=== PATIENT | female | born 1975 | race Caucasian/White ===

== ENCOUNTER 2022-07-20 07:25 | Day surgery (SDC) | payer MEDICARE, MEDICAID ==
[~2022-07-20 07:25] MED LIST: Lactated Ringers 1,000 ML IV SCH; Lidocaine 1%/Sod Bicarbonate in NS 8.4% 1 ML Syringe IDERM PRN; Midazolam 1 MG/ML 2 ML SDV ONE; Propofol 200 MG/20 ML SDV ONE; Sodium Chloride 0.9% 10 ML Syringe FLUSH PRN; Sodium Chloride 0.9% 10 ML Syringe FLUSH SCH; fentaNYL 100 MCG/2 ML SDV ONE
[2022-07-20] MEDS ORDERED: Lidocaine 1% 10 ML MDV ONE (07:50)
[2022-07-20] MEDS ORDERED: Bupivacaine 0.5% 10 ML SDV ONE ×3 (07:51→09:32)
[2022-07-20] MEDS ORDERED: Albuterol 0.083% 2.5 MG/3 ML Neb Soln NEB ONE (08:06)
[2022-07-20] MEDS ORDERED: Lidocaine 1% 4 ML ONE (09:09)
[2022-07-20] MEDS ORDERED: ceFAZolin 2 GM Vial ONE (09:11)
[2022-07-20] MEDS ORDERED: Midazolam 1 MG/ML 2 ML SDV ONE (09:22)
[2022-07-20] MEDS ORDERED: Ketamine 500 mg/10 ML MDV ONE (09:34)
[2022-07-20] MEDS ORDERED: Propofol 200 MG/20 ML SDV ONE (09:47)
[2022-07-20] MEDS ORDERED: Ketorolac 30 MG/ML SDV IVPUSH SCH (11:00)
== END 2022-07-20 13:00 | disposition home or self-care (01) ==
LOC: JD.SDS 07:25
PROVIDERS: ATTEND Podiatrist Foot & Ankle Surgery
DX: M20.12 Hallux valgus (acquired), left foot (principal); M79.672 Pain in left foot; I10 Essential (primary) hypertension; F41.9 Anxiety disorder, unspecified; E66.9 Obesity, unspecified; F32.A Depression, unspecified; E78.5 Hyperlipidemia, unspecified; F41.0 Panic disorder [episodic paroxysmal anxiety]; F20.0 Paranoid schizophrenia; G47.30 Sleep apnea, unspecified
CPT/HCPCS: 28292; 28315; 81025; C1713; C1769; J0690; J1885; J2250; J2704; J3010; J3490; J7120; 01480

== ENCOUNTER 2023-01-25 15:40 | Emergency (ER) | payer MEDICARE, MEDICAID ==
[2023-01-25] MEDS ORDERED: Sodium Chloride 0.9% 10 ML Syringe FLUSH PRN (16:16)
[2023-01-25 16:26] LABS: BASOPHILS ABSOLUTE AUTO 0.03 K/mm3 (0.01-0.08); BASOPHILS PERCENT AUTO 0.2 % (0.1-1.2); EOSINOPHILS ABSOLUTE AUTO 0.08 K/mm3 (0.04-0.36); EOSINOPHILS PERCENT AUTO 0.6 (0.7-5.8); HEMATOCRIT 39.1 % (34.1-44.9); HEMOGLOBIN 12.3 gm/dl (11.2-15.7); IMMATURE GRAN ABSOLUTE AUTO 0.07 K/mm3 (0.00-0.10); IMMATURE GRAN PERCENT AUTO 0.5 % (<=1.0); LYMPHOCYTES PERCENT AUTO 13.4 % (19.3-51.7); MEAN CORPUSCULAR HEMOGLOBIN 29.4 pg (25.6-32.2); MEAN CORPUSCULAR HGB CONC 31.5 g/dl (32.2-35.5); MEAN CORPUSCULAR VOLUME 93.5 fl (79.4-94.8); MONOCYTES ABSOLUTE AUTO 1.35 K/mm3 (0.24-0.36); MONOCYTES PERCENT AUTO 10.1 % (4.7-12.5); NEUTROPHILS ABSOLUTE AUTO 10.08 K/mm3 (1.56-6.13); NEUTROPHILS PERCENT AUTO 75.2 % (34.0-71.1); PLATELET COUNT,PLT 323 K/mm3 (182-369); RED BLOOD CELL COUNT 4.18 M/mm3 (3.98-5.22); WHITE BLOOD CELL COUNT,WBC 13.41 K/mm3 (3.98-10.04)
[2023-01-25 17:07] LABS: A/G RATIO 0.5 (1-2); ALANINE AMINOTRANSFERASE,ALT 16 U/L (14-59); ALBUMIN 2.5 g/dl (3.4-5.0); ALKALINE PHOSPHATASE 67 U/L (46-116); ANION GAP 13.9 (5-15); ASPARTATE AMNIOTRANSFERASE,AST 28 U/L (15-37); BILIRUBIN TOTAL 0.6 mg/dL (0.2-1.0); BLOOD UREA NITROGEN,BUN 9 mg/dL (7-18); CALCIUM 8.9 mg/dL (8.5-10.1); CARBON DIOXIDE,CO2 24 mEq/L (21-32); CHLORIDE,CL 105 mEq/L (98-107); CREATININE 0.9 mg/dL (0.55-1.02); ESTIMATED GFR 80 mL/min (>60); GLUCOSE RANDOM 95 mg/dL (70-99); POTASSIUM,K 3.9 mEq/L (3.5-5.1); PROTEIN TOTAL,TP 7.3 g/dl (6.4-8.2); SODIUM,NA 139 mEq/L (136-145)
[2023-01-25 17:21] LABS: C-REACTIVE PROTEIN 17.8 mg/dL (<1.0)
[2023-02-02 13:42] LABS: CLOZAPINE, SERUM 1179 ng/mL (350-600); NORCLOZAPINE, SERUM 374 ng/mL (Not Estab.); TOTAL(CLOZNORCLOZ) 1553 ng/mL
== END 2023-01-25 19:21 | disposition home or self-care (01) ==
LOC: JD.ED 15:40
DX: J18.9 Pneumonia, unspecified organism (principal); T42.4X5A Adverse effect of benzodiazepines, initial encounter; I10 Essential (primary) hypertension; E66.9 Obesity, unspecified; Z88.8 Allergy status to other drugs, medicaments and biological substances; Z88.2 Allergy status to sulfonamides; Z79.899 Other long term (current) drug therapy
CPT/HCPCS: 36415; 71045; 80053; 80159; 84703; 85025; 86140; 99285; J3490; 99284

== ENCOUNTER 2023-01-28 11:54 | Emergency (ER) | payer MEDICARE, MEDICAID ==
[2023-01-28] MEDS ORDERED: Prazosin 1 MG Cap PO ONE (12:36)
[2023-01-28] MEDS ORDERED: Loratadine 10 MG Tab PO ONE (12:37)
[2023-01-28] MEDS ORDERED: Losartan 50 MG Tab PO ONE (12:37)
[2023-01-28] MEDS ORDERED: Gabapentin 300 MG Cap PO ONE (12:38)
[2023-01-28] MEDS ORDERED: busPIRone 5 MG Tab PO ONE (12:38)
[2023-01-28 12:42] LABS: BASOPHILS ABSOLUTE AUTO 0.03 K/mm3 (0.01-0.08); BASOPHILS PERCENT AUTO 0.3 % (0.1-1.2); EOSINOPHILS PERCENT AUTO 0.9 (0.7-5.8); HEMATOCRIT 34.9 % (34.1-44.9); IMMATURE GRAN ABSOLUTE AUTO 0.09 K/mm3 (0.00-0.10); IMMATURE GRAN PERCENT AUTO 0.8 % (<=1.0); LYMPHOCYTES ABSOLUTE AUTO 1.42 K/mm3 (1.18-3.74); LYMPHOCYTES PERCENT AUTO 12.8 % (19.3-51.7); MEAN CORPUSCULAR HEMOGLOBIN 29.3 pg (25.6-32.2); MEAN CORPUSCULAR HGB CONC 31.5 g/dl (32.2-35.5); MEAN CORPUSCULAR VOLUME 93.1 fl (79.4-94.8); MEAN PLATELET VOLUME 8.6 fl (9.4-12.3); MONOCYTES ABSOLUTE AUTO 1.31 K/mm3 (0.24-0.36); MONOCYTES PERCENT AUTO 11.8 % (4.7-12.5); NEUTROPHILS ABSOLUTE AUTO 8.12 K/mm3 (1.56-6.13); NEUTROPHILS PERCENT AUTO 73.4 % (34.0-71.1); PLATELET COUNT,PLT 293 K/mm3 (182-369); RED BLOOD CELL COUNT 3.75 M/mm3 (3.98-5.22); WHITE BLOOD CELL COUNT,WBC 11.07 K/mm3 (3.98-10.04)
[2023-01-28] MEDS ORDERED: Sertraline 50 MG Tab PO SCH (12:45)
[2023-01-28 12:56] LABS: INR 1.48; PROTHROMBIN TIME 15.4 SECONDS (9.7-12.0)
[2023-01-28 12:57] LABS: PTT,PARTIAL THROMBOPLSTIN TIME 34.5 SECONDS (21.7-31.4)
[2023-01-28 13:01] LABS: A/G RATIO 0.6 (1-2); ALANINE AMINOTRANSFERASE,ALT 20 U/L (14-59); ALBUMIN 2.3 g/dl (3.4-5.0); ALKALINE PHOSPHATASE 57 U/L (46-116); ANION GAP 15.2 (5-15); ASPARTATE AMNIOTRANSFERASE,AST 45 U/L (15-37); BILIRUBIN TOTAL 0.6 mg/dL (0.2-1.0); BLOOD UREA NITROGEN,BUN 12 mg/dL (7-18); CALCIUM 8.4 mg/dL (8.5-10.1); CARBON DIOXIDE,CO2 24 mEq/L (21-32); CHLORIDE,CL 104 mEq/L (98-107); CREATININE 0.8 mg/dL (0.55-1.02); ESTIMATED GFR 93 mL/min (>60); GLUCOSE RANDOM 98 mg/dL (70-99); POTASSIUM,K 3.2 mEq/L (3.5-5.1); PROTEIN TOTAL,TP 6.5 g/dl (6.4-8.2); SODIUM,NA 140 mEq/L (136-145); TROPONIN I HIGH SENSITIVITY 6 pg/mL (<=51)
[2023-01-28 13:24] LABS: APPEARANCE,URINE CLEAR (Clear); BILIRUBIN,URINE NEGATIVE (Negative); COLOR,URINE YELLOW (Yellow); GLUCOSE,URINE NEGATIVE (Negative); KETONES,URINE NEGATIVE (Negative); LEUKOCYTE ESTERASE,URINE NEGATIVE (Negative); NITRITE,URINE NEGATIVE (Negative); OCCULT BLOOD,URINE TRACE-INTACT (Negative); PH,URINE 6.5 (5.0-8.0); PROTEIN,URINE NEGATIVE (Negative)
[2023-01-28 14:07] LABS: BACTERIA,URINE FEW /hpf (FEW); MUCUS,URINE FEW /hpf (FEW); RBC,URINE 0-5 /hpf (0-5); WBC,URINE 0-5 /hpf (0-5)
[2023-01-28] MEDS ORDERED: Potassium Chloride 20 MEQ Tab.ER PO ONE (15:23)
== END 2023-01-28 15:49 | disposition home or self-care (01) ==
LOC: JD.ED 11:54
DX: R53.1 Weakness (principal); I10 Essential (primary) hypertension; E66.9 Obesity, unspecified; Z88.8 Allergy status to other drugs, medicaments and biological substances; Z88.2 Allergy status to sulfonamides; Z79.899 Other long term (current) drug therapy
CPT/HCPCS: 36415; 70450; 80053; 81001; 81025; 82947; 84484; 85025; 85610; 85730; 93005; 99285; A9270

== ENCOUNTER 2023-05-07 04:25 | Emergency (ER) | payer MEDICARE, MEDICAID ==
[2023-05-07] MEDS ORDERED: Orphenadrine 100 MG Tab.ER PO SCH (05:05)
[2023-05-07 06:00] LABS: APPEARANCE,URINE SLT CLOUDY (Clear); BILIRUBIN,URINE NEGATIVE (Negative); COLOR,URINE YELLOW (Yellow); GLUCOSE,URINE NEGATIVE (Negative); KETONES,URINE NEGATIVE (Negative); LEUKOCYTE ESTERASE,URINE TRACE (Negative); NITRITE,URINE NEGATIVE (Negative); OCCULT BLOOD,URINE NEGATIVE (Negative); PH,URINE 6.5 (5.0-8.0); PROTEIN,URINE NEGATIVE (Negative)
[2023-05-07 06:11] LABS: RBC,URINE 0-5 /hpf (0-5); SQUAMOUS EPITHELIAL CELLS,UR 20-30 /hpf (0-5)
[2023-05-07 06:12] LABS: BACTERIA,URINE FEW /hpf (FEW); MUCUS,URINE NOT SEEN /hpf (FEW)
== END 2023-05-07 07:35 | disposition home or self-care (01) ==
LOC: JD.ED 04:25
DX: S39.012A Strain of muscle, fascia and tendon of lower back, initial encounter (principal); E78.00 Pure hypercholesterolemia, unspecified; I10 Essential (primary) hypertension; E66.9 Obesity, unspecified; Z68.42 Body mass index [BMI] 45.0-49.9, adult; Z88.8 Allergy status to other drugs, medicaments and biological substances; Z88.2 Allergy status to sulfonamides; Z79.899 Other long term (current) drug therapy
CPT/HCPCS: 81001; 87086; 99284; A9270

== ENCOUNTER 2023-09-23 08:10 | Day surgery (SDC) | payer MEDICARE, MEDICAID ==
[~2023-09-23 08:10] MED LIST changes: -Lidocaine 1%/Sod Bicarbonate in NS 8.4% 1 ML Syringe IDERM PRN; -Midazolam 1 MG/ML 2 ML SDV ONE; -Propofol 200 MG/20 ML SDV ONE; -fentaNYL 100 MCG/2 ML SDV ONE
[2023-09-23] MEDS ORDERED: dexmedeTOMIDine HCl 200 MCG/2 ML SDV ONE (08:16)
[2023-09-23] MEDS ORDERED: Ropivacaine 0.5% 5 MG/ML 30 ML SDV ONE (08:16)
[2023-09-23] MEDS ORDERED: Midazolam 1 MG/ML 2 ML SDV ONE ×2 (08:17→09:37)
[2023-09-23] MEDS ORDERED: fentaNYL 100 MCG/2 ML SDV ONE ×2 (08:17→10:58)
[2023-09-23] MEDS ORDERED: Propofol 200 MG/20 ML SDV ONE ×4 (08:18→11:23)
[2023-09-23] MEDS ORDERED: Bupivacaine 0.25% 10 ML SDV ONE (08:35)
[2023-09-23] MEDS ORDERED: HYDROmorphone 0.5 MG/0.5 ML Syringe IVPUSH PRN (08:44)
[2023-09-23] MEDS ORDERED: Ondansetron 4 MG/2 ML SDV IVPUSH PRN (08:44)
[2023-09-23] MEDS ORDERED: fentaNYL 100 MCG/2 ML SDV IVPUSH PRN (08:44)
[2023-09-23] MEDS ORDERED: Albuterol 0.083% 2.5 MG/3 ML Neb Soln NEB SCH (08:44)
[2023-09-23] MEDS ORDERED: EPINEPHrine 1 MG/ML SDV ONE (08:55)
[2023-09-23] MEDS ORDERED: Dexamethasone 4 MG/ML 5 ML MDV ONE (08:55)
[2023-09-23] MEDS ORDERED: ceFAZolin 2 GM Vial ONE (09:30)
[2023-09-23] MEDS ORDERED: Ketamine 200 MG/20 ML MDV ONE (09:37)
[2023-09-23] MEDS ORDERED: Lidocaine 1% 4 ML ONE (10:23)
[2023-09-23] MEDS ORDERED: Lactated Ringers 1,000 ML ONE (11:41)
== END 2023-09-23 14:40 | disposition home or self-care (01) ==
LOC: JD.SDS 08:10
PROVIDERS: ATTEND Podiatrist Foot & Ankle Surgery
DX: M20.32 Hallux varus (acquired), left foot (principal); M24.575 Contracture, left foot; F41.1 Generalized anxiety disorder; F33.9 Major depressive disorder, recurrent, unspecified; E66.01 Morbid (severe) obesity due to excess calories; Z68.41 Body mass index [BMI] 40.0-44.9, adult; E78.00 Pure hypercholesterolemia, unspecified; Z79.899 Other long term (current) drug therapy; Z88.2 Allergy status to sulfonamides; Z88.8 Allergy status to other drugs, medicaments and biological substances
CPT/HCPCS: 28292; 28740; 64450; 76000; J0171; J0690; J1100; J2250; J2704; J2795; J3010; J7120; C1713; C1769; J3490; J7620-GY

== ENCOUNTER 2023-10-14 16:25 | Emergency (ER) | payer MEDICARE, MEDICAID | END 2023-10-14 19:14 | disposition home or self-care (01) | LOC: JD.ED 16:25 | DX: M79.672 Pain in left foot (principal); Z98.890 Other specified postprocedural states; I10 Essential (primary) hypertension; E78.00 Pure hypercholesterolemia, unspecified; E66.9 Obesity, unspecified; Z68.41 Body mass index [BMI] 40.0-44.9, adult; Z88.2 Allergy status to sulfonamides; Z88.8 Allergy status to other drugs, medicaments and biological substances; Z79.899 Other long term (current) drug therapy | CPT/HCPCS: 99283 ==

== ENCOUNTER 2024-03-01 01:01 | Emergency (ER) | payer MEDICARE, MEDICAID ==
[2024-03-01] MEDS: Sodium Chloride 0.9% 10 ML Syringe FLUSH PRN (01:11)
[2024-03-01 01:21] LABS: BASOPHILS PERCENT AUTO 0.1 % (0.0-1.0); EOSINOPHILS PERCENT AUTO 0.1 % (0.0-6.0); HEMATOCRIT 35.4 % (37.0-47.0); HEMOGLOBIN 11.7 gm/dl (12.0-16.0); IMMATURE GRAN ABSOLUTE AUTO 0.06 K/mm3 (0.00-0.05); IMMATURE GRAN PERCENT AUTO 0.5 % (0.0-0.4); LYMPHOCYTES ABSOLUTE AUTO 0.4 K/mm3 (1.0-4.8); LYMPHOCYTES PERCENT AUTO 3.4 % (24.0-44.0); MEAN CORPUSCULAR HEMOGLOBIN 32.5 pg (28.0-32.0); MEAN CORPUSCULAR HGB CONC 33.1 g/dl (32.0-36.0); MEAN CORPUSCULAR VOLUME 98.3 fl (83.0-99.0); MEAN PLATELET VOLUME 9.2 fl (9.4-12.3); MONOCYTES ABSOLUTE AUTO 1.5 K/mm3 (0.0-0.8); MONOCYTES PERCENT AUTO 12.9 % (0.0-8.0); NEUTROPHILS ABSOLUTE AUTO 9.9 K/mm3 (1.8-7.7); PLATELET COUNT,PLT 145 K/mm3 (150-400); WHITE BLOOD CELL COUNT,WBC 11.96 K/mm3 (3.9-11.3)
[2024-03-01 01:45] LABS: A/G RATIO 0.6 (1-2); ALBUMIN 2.9 g/dl (3.4-5.0); BILIRUBIN TOTAL 0.8 mg/dL (0.2-1.0); BUN/CREATININE RATIO 12.7 (14-18); CALCIUM 8.7 mg/dL (8.5-10.1); CREATININE 1.1 mg/dL (0.55-1.02); EST CRCL DRUG DOSING (CG) 48.22 mL/min; PROTEIN TOTAL,TP 7.4 g/dl (6.4-8.2)
[2024-03-01 01:56] LABS: LACTIC ACID 2.5 mmol/L (0.4-2.0)
[2024-03-01 02:03] LABS: SLIDE REVIEW ABNORMAL SMEAR
[2024-03-01 02:13] LABS: APPEARANCE,URINE CLEAR (Clear); BILIRUBIN,URINE 1+ (Negative); COLOR,URINE YELLOW (Yellow); GLUCOSE,URINE NEGATIVE (Negative); KETONES,URINE NEGATIVE (Negative); LEUKOCYTE ESTERASE,URINE 1+ (Negative); NITRITE,URINE NEGATIVE (Negative); OCCULT BLOOD,URINE TRACE-INTACT (Negative); PH,URINE 8.5 (5.0-8.0); PROTEIN,URINE 1+ (Negative)
[2024-03-01] MEDS: cefTRIAXone 2 GM in Sodium Chloride 0.9% 100 ML IV ONE (02:13)
[2024-03-01 02:37] LABS: BACTERIA,URINE MANY /hpf (FEW); EPITHELIAL CELLS,URINE 0-5 /hpf (0-5); MUCUS,URINE NOT SEEN /hpf (FEW); RBC,URINE 0-5 /hpf (0-5); WBC CLUMPS,URINE FEW /hpf (NOT SEEN)
[2024-03-01] MEDS: Iopamidol 612 MG/ML 100 ML Bottle IVPUSH ONE (03:02)
[2024-03-01] MEDS: Sodium Chloride 0.9% 1,000 ML IV ONE (03:52)
== END 2024-03-01 07:14 | disposition home or self-care (01) ==
LOC: JD.ED 01:01
DX: K80.34 Calculus of bile duct with chronic cholangitis without obstruction (principal); N39.0 Urinary tract infection, site not specified; I10 Essential (primary) hypertension; E66.9 Obesity, unspecified; Z86.16 Personal history of COVID-19; Z79.899 Other long term (current) drug therapy; Z88.2 Allergy status to sulfonamides; Z88.8 Allergy status to other drugs, medicaments and biological substances; Z68.43 Body mass index [BMI] 50.0-59.9, adult
CPT/HCPCS: 36415; 71045; 74177; 80053; 81001; 83605; 83690; 83735; 85025; 86140; 87040; 87086; 96361; 96365; 99284; C1758; J0696; J3490; J7030; Q9967; 87088; 87186